=== PATIENT | female | born 1955 | race Caucasian/White ===

== ENCOUNTER 2020-11-10 12:48 | Emergency (ER) | payer BC ==
[~2020-11-10] VITALS: Ht 165.1 cm; Wt 102.1 kg
[2020-11-10] MEDS ORDERED: HYDROCODONE/APAP 5/325MG TABLET ONE (13:09)
--- NOTE | 2020-11-10 13:10 | NUR ---
BIBS WITH . 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 ALERT AND ORIENTED X4. NON LABORED BREATHING.
[2020-11-10] MEDS ORDERED: HYDROCODONE/APAP 5/325MG TABLET PO ONE (13:30)
[2020-11-10 14:08] VITALS: BP 118/77
--- NOTE | 2020-11-10 14:09 | NUR ---
Patient discharged to home in stable condition. Written and verbal after care instructions given. Patient verbalizes understanding of instruction.
== END 2020-11-10 14:09 | disposition home or self-care (01) ==
LOC: ER 12:48
DX: S82.431A Displaced oblique fracture of shaft of right fibula, initial encounter for closed fracture (principal); Z88.0 Allergy status to penicillin; Z88.2 Allergy status to sulfonamides; X50.1XXA Overexertion from prolonged static or awkward postures, initial encounter; Y93.89 Activity, other specified; Y92.89 Other specified places as the place of occurrence of the external cause; Y99.8 Other external cause status
CPT/HCPCS: 73610-TC